=== PATIENT | male | born 1960 | race African-American/Black ===

== ENCOUNTER 2016-05-28 10:30 | Emergency (ER) | payer BC ==
[~2016-05-28] VITALS: Ht 180.3 cm; Wt 110.0 kg
[~2016-05-28 10:30] MED LIST: DORZ1SOL2 OU; FISH1000 PO; LATA.005%O OU; OMEP20TA OR; TAB-TAB PO
[2016-05-28 10:32] VITALS: BP 144/81; PULSE 114; RESP 16; TEMP 97.8; O2SAT 97
[2016-05-28 10:33] VITALS: PULSE 96
[2016-05-28] MEDS ORDERED: LATA.005%O EACH EYE (10:47)
[2016-05-28] MEDS ORDERED: DORZ1SOL2 EACH EYE (10:47)
--- NOTE | 2016-05-28 11:38 | PD ---
HPI Chief Complaint: Edema Time Seen by Provider: 11:32 Travel History International Travel<30 days: No Contact w/Intl Traveler<30days: No Traveled to known affect area: No History of Present Illness HPI 56-year-old male presents to the emergency Department with complaint of right lower extremity swelling for the last 2-3 weeks. Reports pain in his calf area. Reports the pain in his calf is just dull. Pain is aggravated on palpation. Has taken Tylenol with no relief of symptoms. Denies paresthesias, loss of sensation, decreased range of motion, decreased strength to the affected extremity. Denies history of DVT or PE. Denies anticoagulants. Denies fever, chills, nausea, vomiting. Denies hemoptysis, chest pain, shortness of breath. Reports history of anemia. No known allergies. No other modifying factors or associated signs and symptoms. PFSH Past Medical History Hx Anticoagulant Therapy: No Anemia: Yes Cancer: No Diabetes: No Hiatal Hernia: No Thyroid Disease: No Past Surgical History Oral Surgery: Yes (WISDOM TEETH EXTRACTED) Pacemaker: No Social History Tobacco Use: No Allergies-Medications (Allergen,Severity, Reaction): Coded Allergies: No Known Allergies (Unverified , 05/28/16) Reported Meds & Prescriptions Reported Meds & Active Scripts Active Reported Xalatan Opth Drops (Latanoprost) 0.005% Drops 1 Drop EACH EYE HS Cosopt Opth Drops (Dorzolamide-Timolol Opth Drops) 22.3-6.8 Mg/Ml Soln 1 Drop EACH EYE BID Review of Systems Except as stated in HPI: all other systems reviewed are Neg Physical Exam Narrative GENERAL: Well-nourished, well-developed male patient, in no acute distress SKIN: Warm and dry. HEAD: Atraumatic. Normocephalic. EYES: Pupils equal and round. No scleral icterus. No injection or drainage. ENT: Mucosa pink and moist. Airway patent. NECK: Trachea midline. CARDIOVASCULAR: Regular rate and rhythm. No murmur appreciated. RESPIRATORY: No accessory muscle use. Clear and equal to auscultation bilaterally. GASTROINTESTINAL: Abdomen soft, non-tender, nondistended. Active bowel sounds 4 quadrants. MUSCULOSKELETAL: Right lower extremity supple and non-tense with 2+ pedal pulse and sensory intact without erythema; with nonpitting edema. Reproducible tenderness on palpation to the posterior upper calf. Without warmth to touch. Right lower calf and ankle appear more edematous when compared to the left. No obvious deformities. No clubbing. No cyanosis. NEUROLOGICAL: Awake and alert. Oriented 3. No obvious cranial nerve deficits. Motor grossly within normal limits. Normal speech. PSYCHIATRIC: Appropriate mood and affect; insight and judgment normal. Data Data Last Documented VS Vital Signs Date Time Temp Pulse Resp B/P Pulse Ox O2 Delivery O2 Flow Rate FiO2 05/28/16 10:33 96 05/28/16 10:32 97.8 16 144/81 97 Orders Us Leg Venous Doppler (05/28/16 ) [facility] Medical Decision Making Medical Screen Exam Complete: Yes Emergency Medical Condition: Yes Medical Record Reviewed: Yes Differential Diagnosis Leg edema, DVT, superficial thrombosis Narrative Course 56-year-old male with right leg on pitting edema and pain to the right calf. Denies history of DVT or PE. Denies anticoagulants. The right lower extremity supple non-tense with 2+ pedal pulse and sensory intact and without erythema. Right leg venous Doppler ultrasound ordered. 1421: Right leg venous Doppler ultrasound concluded No DVT in the right leg. Instructed patient to follow up with primary care provider tomorrow. Patient verbalized understanding and agreement with treatment plan. Patient is medically cleared and stable for discharge. Discussed reasons to return to the emergency department. Instructed patient to follow up with primary care provider. Patient agrees with treatment plan. The patients vital signs are stable and the patient is stable for outpatient follow-up and treatment. Patient discharged home, stable and in no acute distress. Diagnosis Primary Impression: Leg edema, right Referrals: Primary Care Physician Patient Instructions: General Instructions, Leg Edema (ED) Departure Forms: Tests/Procedures Additional Instructions: Ibuprofen or Tylenol as directed and as needed for pain and inflammation Follow-up with primary care provider Return to the emergency department immediately with worsening of symptoms Disposition: 01 DISCHARGE HOME Condition: Stable Tete Duong May 28, 2016 11:38
--- NOTE | 2016-05-28 14:10 | RADRPT ---
EXAM DATE/TIME: 05/28/2016 13:15 [facility] COMPARISON: No previous studies available for comparison. INDICATIONS : Right leg swelling. MEDICAL HISTORY : Hypertension. Sleep apnea. Anemia. SURGICAL HISTORY : Wisdome teeth extracted. ENCOUNTER: Initial ACUITY: 3 weeks PAIN SCORE: 3/10 LOCATION: Right leg. TECHNIQUE: Venous ultrasound of the leg was performed from the inguinal ligament to the proximal calf. Real-lizette e, color Doppler and spectral tracing, compression and augmentation techniques were used. FINDINGS: There is normal compressibility of the deep venous system from the inguinal region to the proximal ca lf. No echogenic clot is seen in the lumen of the common femoral, femoral, popliteal, and posterior tibial veins. There is a normal response of the venous system to proximal and distal augmentation an d respiration. CONCLUSION: No DVT in the right leg. Romario Costa MD on May 28, 2016 at 14:08 Board Certified Radiologist. This report was verified electronically.
== END 2016-05-28 14:29 | disposition home or self-care (01) ==
LOC: NEPB 10:30
DX: R60.0 Localized edema (principal)
CPT/HCPCS: 93971